=== PATIENT | male | born 1970 | race Caucasian/White ===

== ENCOUNTER 2018-02-06 12:51 | Emergency (ER) | payer OTHER ==
[2018-02-06 13:08] VITALS: BP 126/77
--- NOTE | 2018-02-06 13:20 | UC ---
Skin Complaint HPI - HPI Summary HPI Summary: Patient presents complaining of an itchy rash to his forearms and left side of his nose and eye. 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 States it is similar rash from a weed exposure 2 years ago. Self treated with Benadryl prior to arrival which is helped with the itch. No associated fever short of breath nausea vomiting. This rash began about 2-3 days ago. - History of Current Complaint Chief Complaint: UCRash Time Seen by Provider: 02/06/18 12:59 Stated Complaint: RASH Hx Obtained From: Patient Onset/Duration: Gradual Onset Pain Intensity: 0 Aggravating Factor(s): Nothing Alleviating Factor(s): Antihistamines Associated Signs & Symptoms: Positive: Rash - Allergy/Home Medications Allergies/Adverse Reactions: Allergies Allergy/AdvReac Type Severity Reaction Status Date / Time amoxicillin Allergy Unknown Rash Verified 02/06/18 13:00 Home Medications: Home Medications Calamine LOTION* 1 applic .SEE ORDER PRN 02/06/18 [History] Cetirizine* [ZyrTEC 10 MG TAB*] 1 tab BEDTIME 02/06/18 [History Confirmed ] Doxazosin TAB* [Cardura TAB*] 2 mg DAILY 02/06/18 [History Confirmed 02/06/18] Lisinopril/HCTZ 20/25(NF) [Zestoretic 20/25(NF)] 1 tab DAILY 02/06/18 [History Confirmed 02/06/18] diPHENhydraMINE PO* [Benadryl PO 25 MG TAB*] 25 mg PO Q6H PRN 02/06/18 [History Confirmed 02/06/18] Review of Systems Constitutional: Negative Skin: Rash Eyes: Negative ENT: Negative Respiratory: Negative Cardiovascular: Negative Gastrointestinal: Negative Genitourinary: Negative Motor: Negative Neurovascular: Negative Musculoskeletal: Negative Neurological: Negative Psychological: Negative Is Patient Immunocompromised?: No All Other Systems Reviewed And Are Negative: Yes PMH/Surg Hx/FS Hx/Imm Hx Cardiovascular History: Hypertension - Surgical History Surgical History: Yes Surgery Procedure, Year, and Place: Kidney donor - Family History Known Family History: Positive: Hypertension, Diabetes - Social History Occupation: Employed Full-time Alcohol Use: Rare Substance Use Type: None Smoking Status (MU): Former Smoker Type: Cigarettes Have You Smoked in the Last Year: No When Did the Patient Quit Smoking/Using Tobacco: 2 YEARS AGO - Immunization History Vaccination Up to Date: Yes Physical Exam Triage Information Reviewed: Yes Appearance: Well-Appearing Vital Signs: Initial Vital Signs Temp 99.1 F 02/06/18 13:04 Pulse 93 02/06/18 13:04 Resp 20 02/06/18 13:04 BP 126/77 02/06/18 13:04 Pulse Ox 99 02/06/18 13:04 Vital Signs Reviewed: Yes Eye Exam: Normal ENT: Positive: Pharynx normal, TMs normal. Negative: Nasal congestion, Nasal drainage Neck: Positive: Supple, Nontender, No Lymphadenopathy Respiratory: Positive: Lungs clear, Normal breath sounds Cardiovascular: Positive: RRR, No Murmur Abdomen Description: Positive: Nontender, No Organomegaly, Soft Bowel Sounds: Positive: Present Musculoskeletal: Positive: ROM Intact Neurological: Positive: Alert Psychological: Positive: Age Appropriate Behavior Skin Exam: Normal, Other - Slit a raised red rash to volar forearms and left side of nose plus left side of eye. Not petechial, no burrows and no scale. Rash fits areas that were exposed including patient noting that he rubbed the side of his face with his gloves. Course/Dx - Course Course Of Treatment: No concern for infestation, fungal or bacterial infection. 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 Discharge - Sign-Out/Discharge Documenting (check all that apply): Patient Departure - Discharge Plan Condition: Stable Disposition: HOME Prescriptions: methylPREDNISolone [Medrol Dosepak 4 MG*] 0 mg PO .SEE LIZETTE INSTRUCTION #1 tab Patient Education Materials: Contact Dermatitis (DC) Referrals: Shameka Hand MD [Primary Care Provider] - 7 Days Additional Instructions: TAKE BENADRYL 50MG EVERY 6 HOURS NEEDED FOR RASH/ITCH. - Billing Disposition and Condition Condition: STABLE Disposition: Home
== END 2018-02-06 13:25 | disposition home or self-care (01) ==
LOC: UCCORT 12:51
DX: L25.9 Unspecified contact dermatitis, unspecified cause (principal); Z88.0 Allergy status to penicillin; Z87.891 Personal history of nicotine dependence; I10 Essential (primary) hypertension
CPT/HCPCS: 99211; G0463

== ENCOUNTER 2018-04-11 18:20 | Emergency (ER) | payer OTHER ==
[2018-04-11 18:43] VITALS: BP 131/83
--- NOTE | 2018-04-11 19:41 | UC ---
Abdominal Pain Male HPI - HPI Summary HPI Summary: SEVERAL WEEKS OF RUQ ABDOMINAL PAIN WITH MILD NAUSEA. NO VOMITING. NO DIARRHEA. NO PENILE DISCHARGE. NO FEVER. WORSE AFTER EATING - ESPECIALLY FATTY FOODS. RADIATES TO HIS BACK. HAS INCREASED GAS. FEELS CONSTIPATED. MILD RELIEF WITH MIRALAX PAST 2 DAYS. SLIGHT DYSURIA PAST WEEK. HAS H/O HEAVY DRINKING. - History of Current Complaint Chief Complaint: UCAbdominalPain Stated Complaint: ABDOMINAL PAIN x1 WEEK Time Seen by Provider: 04/11/18 19:13 Hx Obtained From: Patient Onset/Duration: Gradual Onset, Lasting Weeks, Still Present Severity Initially: Moderate Severity Currently: Moderate Pain Intensity: 4 Pain Scale Used: 0-10 Numeric Location: Discrete At: RUQ Radiates: Yes Radiates to: Back Character: Colicy, Sharp Aggravating Factor(s): Food Alleviating Factor(s): Spontaneous Resolution Associated Signs And Symptoms: Positive: Back Pain, Constipation, Nausea. Negative: Diaphoresis, Fever, Blood in Stool, Urinary Symptoms, Decreased Appetite, Vomiting, Diarrhea, Penile Discharge - Allergies/Home Medications Allergies/Adverse Reactions: Allergies Allergy/AdvReac Type Severity Reaction Status Date / Time amoxicillin Allergy Unknown Rash Verified 04/11/18 18:30 Home Medications: Home Medications Omeprazole CAP* [Prilosec CAP* 20 MG] 1 cap DAILY 04/11/18 [History Confirmed ] PMH/Surg Hx/FS Hx/Imm Hx Cardiovascular History: Hypertension - Surgical History Surgical History: Yes Surgery Procedure, Year, and Place: Kidney donor - Family History Known Family History: Positive: Hypertension, Diabetes - Social History Alcohol Use: Daily Alcohol Amount: "10 BEERS AND COUPLE SHOTS" TWICE/WEEK Substance Use Type: Marijuana Substance Use Comment - Amount & Last Used: OCCASIONALLY Smoking Status (MU): Current Some Day Smoker Type: Cigarettes Have You Smoked in the Last Year: No When Did the Patient Quit Smoking/Using Tobacco: 2 YEARS AGO - Immunization History Most Recent Tetanus Shot: UTD Vaccination Up to Date: Yes Review of Systems Constitutional: Negative ENT: Negative Respiratory: Negative Cardiovascular: Negative Gastrointestinal: Abdominal Pain, Nausea Genitourinary: Dysuria All Other Systems Reviewed And Are Negative: Yes Physical Exam Triage Information Reviewed: Yes Appearance: Well-Appearing, No Pain Distress, Well-Nourished Vital Signs: Initial Vital Signs Temp 97.2 F 04/11/18 18:31 Pulse 77 04/11/18 18:31 Resp 16 04/11/18 18:31 BP 131/83 04/11/18 18:31 Pulse Ox 98 04/11/18 18:31 Laboratory Tests 04/11/18 19:44 POC Urine Color Yellow POC Urine Clarity Clear POC Urine pH 6.0 POC Ur Specif [place] 1.025 POC Urine Protein Trace A POC Ur Glucose (UA) Negative POC Urine Ketones Negative POC Urine Blood Trace-intact A POC Urine Nitrite Negative POC Urine Bilirubin Negative POC Urine Urobilinogen 0.2 POC U Leukocyte Esteras Negative Vital Signs Reviewed: Yes Eyes: Positive: Conjunctiva Clear ENT: Positive: Hearing grossly normal, Pharynx normal, TMs normal Neck: Positive: Supple, Nontender, No Lymphadenopathy Respiratory Exam: Normal Cardiovascular Exam: Normal Abdomen Description: Positive: Soft, Other: - TTP EPIGASTRIC, RUQ. NEG BISHOP' S. POSSIBLE HEPATOMEGALY. Negative: CVA Tenderness (R), CVA Tenderness (L), Distended, Guarding Bowel Sounds: Positive: Present Musculoskeletal: Positive: No Edema Neurological: Positive: Alert Psychological: Positive: Age Appropriate Behavior Skin: Negative: rashes Abd Pain Male Course/Dx - Course Course Of Treatment: CONCERN FOR HEPATOMEGALY ON EXAM. ADVISED EASY DIET FOR POSSIBLE GALLBLADDER DISEASE. DECREASE ALCOHOL CONSUMPTION. PT NEEDS LABS AND IMAGING. DISCUSSED ED TRANSFER. PT DECLINES. PREFERS OUTPT WORK-UP. LOW THRESHOLD FOR GOING TO ED IF SX WORSEN. - Differential Dx/Clinical Impression Provider Diagnoses: BILIARY COLIC Discharge - Sign-Out/Discharge Documenting (check all that apply): Patient Departure All imaging exams completed and their final reports reviewed: No Studies - Discharge Plan Condition: Stable Disposition: HOME Patient Education Materials: Biliary Colic (ED) Referrals: Shameka Hand MD [Primary Care Provider] - 1 Week Additional Instructions: URINE WITH TRACE AMOUNT OF BLOOD. STAY WELL HYDRATED AND REPEAT URINE TEST WITH YOUR PCP. CONCERN FOR LIVER/GALLBLADDER DISEASE. FOLLOW-UP WITH YOUR PCP FOR LABS AND IMAGING. GO TO THE ED WITHOUT FAIL IF YOU DEVELOP WORSENING PAIN, FEVER , NAUSEA OR ANY OTHER CONCERNING SYMPTOMS. FOLLOW A LOW FAT DIET AND DECREASE/ STOP ALCOHOL INTAKE. - Billing Disposition and Condition Condition: STABLE Disposition: Home
== END 2018-04-11 19:58 | disposition home or self-care (01) ==
LOC: UCCORT 18:20
DX: K80.50 Calculus of bile duct without cholangitis or cholecystitis without obstruction (principal); I10 Essential (primary) hypertension; F17.210 Nicotine dependence, cigarettes, uncomplicated; Z88.0 Allergy status to penicillin
CPT/HCPCS: 81003; 99211; G0463

== ENCOUNTER 2019-08-19 19:04 | Emergency (ER) | payer OTHER ==
--- NOTE | 2019-08-19 19:12 | UC ---
Respiratory Complaint HPI - HPI Summary HPI Summary: Patient is a 48 gentleman year old , who present today to the urgent care with chest congestion for past 6 weeks. He reports chest congestion, nasal congestion, sinus pressure and postnasal drip. He just finished a 10 day course of Doxycycline 3 days ago for sinusitis. He also reports Left side chest pain that radiates to back that has been going on for past week . There is associated shortness of breath. No fever, some dry cough. Denies any abdominal pain , nausea or vomiting , diarrhea or constipation. - History of Current Complaint Stated Complaint: UPPER RESPIRATORY COMPLAINT Time Seen by Provider: 08/19/19 19:06 Hx Obtained From: Patient - Allergies/Home Medications Allergies/Adverse Reactions: Allergies Allergy/AdvReac Type Severity Reaction Status Date / Time amoxicillin Allergy Unknown Rash Verified 08/19/19 19:30 Home Medications: Home Medications Pseudoephedrine HCL ER TAB* [Sudafed 12 Hour*] 120 mg PO BID 08/19/19 [History Confirmed 08/19/19] PMH/Surg Hx/FS Hx/Imm Hx - Additional Past Medical History Additional PMH: Past Medical History : Hypertension Past Surgical History: Kidney donor Family History : non contributory Social History : Beer and 2 shots twice a week, quit smoking 2 years ago , no drug use. Previously Healthy: Yes - Surgical History Surgical History: Yes Surgery Procedure, Year, and Place: Kidney donor - Family History Known Family History: Positive: Hypertension, Diabetes, Non-Contributory - Social History Alcohol Use: Daily Alcohol Amount: "10 BEERS AND COUPLE SHOTS" TWICE/WEEK Substance Use Type: Marijuana Substance Use Comment - Amount & Last Used: OCCASIONALLY Smoking Status (MU): Current Some Day Smoker Type: Cigarettes Have You Smoked in the Last Year: No When Did the Patient Quit Smoking/Using Tobacco: 2 YEARS AGO - Immunization History Most Recent Tetanus Shot: UTD Vaccination Up to Date: Yes Review of Systems All Other Systems Reviewed And Are Negative: Yes Constitutional: Positive: Negative Skin: Positive: Negative Eyes: Positive: Negative ENT: Positive: Sinus Congestion, Sinus Pain/Tenderness. Negative: Sore Throat Respiratory: Positive: Shortness Of Breath, Cough - Dry Cardiovascular: Positive: Chest Pain Gastrointestinal: Positive: Negative Genitourinary: Positive: Negative Motor: Positive: Negative Neurovascular: Positive: Negative Musculoskeletal: Positive: Negative Neurological: Positive: Negative Psychological: Positive: Negative Is Patient Immunocompromised?: No Physical Exam - Summary Physical Exam Summary: Physical Exam: Const: Appears well. No signs of apparent distress present. Alert and oriented x 3. Musculo: Walks with a normal gait. Head/Face: Atraumatic, normocephalic on inspection. Eyes: EOMI and PERRLA in both eyes. Conjunctivae clear. No discharge noted ENT: Hearing normal, TM normal appearing bilaterally, non bulging , non erythematous . Some tenderness to palpation on maxillary and frontal sinus. No significant pharyngeal erythema or exudates . Small amount of postnasal dripping noted Uvula is midline. No cervical or submandibular lymphadenopathy noted. Respiratory: Respirations are unlabored. Lungs clear to auscultation bilaterally, no wheezing , rhonchi or rales noted . CVS: Regular rate and Rhythm, S1S2 normal , no murmurs identified. Extremities: Peripheral circulation is grossly normal. Pulses 2+ Abdomen : Soft non tender , nondistended , Bowel sounds present . No guarding , rebound tenderness or rigidity noted. Skin: No lesions or rash located on the upper extremities or on the lower extremities. Neuro: Cranial nerves II to XII intact, motor and sensory intact. DTR Intact bilaterally. Mood is normal. Affect is normal. Triage Information Reviewed: Yes Vital Signs Reviewed: Yes Respiratory Course/Dx - Course Course Of Treatment: During the visit today, we obtained EKG: Normal sinus, regular rhythm, normal VA, normal QRS, T-wave inversion in V1, RSR' pattern in V1, No STEMI and no prior to compare . chest x-ray: Negative for any acute cardio pulmonary pathology. Hisx-rays were done after 6 PM and no official radiology read is available at this time . X-rays will be read tomorrow morning by radiologist and if anything different, somebody will call you with the findings and further plan. We discussed that his symptoms have been ongoing for more than 6 weeks and now he is having chest pain . And has incomplete RBBB pattern on the EKG which is a normal variant. Concern for questionable pulmonary embolism Also discussed about his high blood pressure but he reports that he has white coat hypertension. We discussed that he should follow with his primary care doctor within 4 weeks. We discussed the findings and further plan for further evaluation and ER with possible CT scan to rule out any PE. Patient needs additional testing, thus ER transfer advised and patient agrees. Report called to the ER provider, Judie Angelica, [employer] at [facility] and , advised provider of the history, physical examination, and duration of illness and labs/imaging so far and the need for definitive management. He will go to the ER via private car. Vitals stable at the time of discharge - Differential Dx/Diagnosis Differential Diagnosis/HQI/PQRI: Other - pulmonary embolism Provider Diagnosis: Sinusitis, Chest pain Discharge ED - Sign-Out/Discharge Documenting (check all that apply): Patient Departure All imaging exams completed and their final reports reviewed: No - Discharge Plan Condition: Stable Disposition: HOME-RECOMMEND TO ED Patient Education Materials: Chest Pain (DC) Referrals: Bruno Wan MD [Primary Care Provider] - Additional Instructions: Please immediately go to the ER for further evaluation. I have called the report to the provider. - Billing Disposition and Condition Condition: STABLE Disposition: Home-Recommend to ED
[2019-08-19 19:30] VITALS: BP 157/93
--- NOTE | 2019-08-20 07:30 | UC ---
- Progress Note Progress Note: wet read correct Course/Dx - Diagnoses Provider Diagnoses: Sinusitis, Chest pain Discharge ED - Sign-Out/Discharge Documenting (check all that apply): Post-Discharge Follow Up All imaging exams completed and their final reports reviewed: Yes - Discharge Plan Condition: Stable Disposition: HOME-RECOMMEND TO ED Patient Education Materials: Chest Pain (DC) Referrals: Bruno Wan MD [Primary Care Provider] - Additional Instructions: Please immediately go to the ER for further evaluation. I have called the report to the provider. - Billing Disposition and Condition Condition: STABLE Disposition: Home-Recommend to ED
== END 2019-08-19 20:29 | disposition home health service (06) ==
LOC: UCCORT 19:04
DX: J32.9 Chronic sinusitis, unspecified (principal); R07.9 Chest pain, unspecified; R05 Cough; R06.02 Shortness of breath; F17.210 Nicotine dependence, cigarettes, uncomplicated; I10 Essential (primary) hypertension; Z88.0 Allergy status to penicillin
CPT/HCPCS: 71046; 93005; 99212; G0463